=== PATIENT | male | born 1960 | race African-American/Black ===

== ENCOUNTER 2018-06-15 11:28 | Inpatient (IN) | payer OTHER ==
[2018-06-15 14:13] VITALS: BMI 26.9
--- NOTE | 2018-06-15 14:40 | HP ---
CIWA Score Nausea/Vomitin-No Nausea/No Vomiting Muscle Tremors: 4-Moderate,w/Arms Extend Anxiety: 4-Mod. Anxious/Guarded Agitation: 4-Moderately Restless Paroxysmal Sweats: 2 Orientation: 0-Oriented Tacttile Disturbances: 0-None Auditory Disturbances: 0-None Visual Disturbances: 0-None Headache: 1-Very Mild CIWA-Ar Total Score: 15 - Admission Criteria OASAS Guidelines: Admission for Medically Managed Detox: Requires at least one of the followin. CIWA greater than 12 2. Seizures within the past 24 hours 3. Delirium tremens within the past 24 hours 4. Hallucinations within the past 24 hours 5. Acute intervention needed for co occurring medical disorder 6. Acute intervention needed for co occurring psychiatric disorder 7. Severe withdrawal that cannot be handled at a lower level of care (continued vomiting, continued diarrhea, abnormal vital signs) requiring intravenous medication and/or fluids 8. Admission ROS S - HPI Chief Complaint: I drink too much and need help to stop and get treatment. Allergies/Adverse Reactions: Allergies Allergy/AdvReac Type Severity Reaction Status Date / Time No Known Allergies Allergy Verified 06/15/18 13:54 History of Present Illness: pt is a 58yr old male with a history of alcohol and cocaine dependence seeking detox for treatment. longest sobriety for two years [id number]. Exam Limitations: Physical Impairment (walks with cane for ambulating d/t b/ lortho (knee) surgery 2009) - Ebola screening Have you traveled outside of the country in the last 21 days: No Have you had contact with anyone from an Ebola affected area: No Have you been sick,other than usual withdrawal symptoms: No Do you have a fever: No - Review of Systems Constitutional: Chills, Diaphoresis, Loss of Appetite, Changes in sleep EENT: reports: Other (blurred vision need glasses) Respiratory: reports: No Symptoms reported Cardiac: reports: No Symptoms Reported GI: reports: Diarrhea, Nausea, Poor Appetite, Poor Fluid Intake, Indigestion : reports: Urgency Musculoskeletal: reports: Back Pain, Muscle Pain, Joint Stiffness Integumentary: reports: Flushing, Sweating Neuro: reports: Headache, Tingling, Tremors Endocrine: reports: Excessive Sweating, Flushing, Intolerance to Cold, Intolerance to Heat Hematology: reports: No Symptoms Reported Psychiatric: reports: Judgement Intact, Mood/Affect Appropiate, Orientated x3, Agitated, Anxious Other Systems: Reviewed and Negative Patient History - Patient Medical History Hx Anemia: No Hx Asthma: Yes (albuterol) Hx Chronic Obstructive Pulmonary Disease (COPD): No Hx Cancer: No Hx Cardiac Disorders: No Hx Congestive Heart Failure: No Hx Hypertension: No Hx Hypercholesterolemia: No Hx Pacemaker: No HX Cerebrovascular Accident: No Hx Seizures: No Hx Dementia: No Hx Diabetes: No Hx Gastrointestinal Disorders: Yes (stomach ulcer) Hx Liver Disease: No Hx Genitourinary Disorders: No Hx Sexually Transmitted Disorders: No Hx Renal Disease (ESRD): No Hx Thyroid Disease: No Hx Human Immunodeficiency Virus (HIV): No (negative) Hx Hepatitis C: No (negative) Hx Depression: No Hx Suicide Attempt: No (denies) Hx Bipolar Disorder: No Hx Schizophrenia: No - Patient Surgical History Past Surgical History: Yes Hx Neurologic Surgery: No Hx Cataract Extraction: No Hx Cardiac Surgery: No Hx Lung Surgery: No Hx Breast Surgery: No Hx Breast Biopsy: No Hx Abdominal Surgery: No Hx Appendectomy: No Hx Cholecystectomy: No Hx Genitourinary Surgery: No Hx Section: No Hx Orthopedic Surgery: Yes (bilateral knee replacement in 2009) Anesthesia Reaction: No - PPD History Previous Implant?: Yes Documented Results: Negative w/o proof Implanted On Prior R Admission?: No PPD to be Administered?: Yes - Reproductive History Patient is a Female of Child Bearing Age (11 -55 yrs old): No - Smoking Cessation Smoking history: Current every day smoker Have you smoked in the past 12 months: Yes Aproximately how many cigarettes per day: 6 Hx Chewing Tobacco Use: No Initiated information on smoking cessation: Yes 'Breaking Loose' booklet given: 06/15/18 - Substance & Tx. History Hx Alcohol Use: Yes Hx Substance Use: Yes Substance Use Type: Alcohol, Cocaine Hx Substance Use Treatment: Yes (last detox 2009 [facility]. ) - Substances Abused Cocaine Route: Smoking Frequency: 1-2 times per week Amount used: $30 Age of first use: 20 Date of Last Use: 06/14/18 Heroin Route: Inhalation Frequency: 1-3 times last 30 days Amount used: 1 bag Age of first use: 57 Date of Last Use: 06/13/18 Alcohol-beer/vodka Route: Oral Frequency: Daily Amount used: 1-6 pk./2 pts. Age of first use: 19 Date of Last Use: 06/14/18 Family Disease History - Family Disease History Family Disease History: Other: Father (ETOH/), Mother (ETOH/), Sister (ETOH in remission) Admission Physical Exam [facility] - Vital Signs Vital Signs: Vital Signs - 24 hr 06/15/18 13:56 Temperature 96.2 F L Pulse Rate 91 H Respiratory 18 Rate Blood Pressure 117/85 - Physical General Appearance: Yes: Appropriately Dressed, Moderate Distress, Tremorous, Irritable, Sweating, Anxious HEENTM: Yes: Hearing grossly Normal, Normal Voice, Nasal Congestion, Rhinorrhea Respiratory: Yes: Lungs Clear, Normal Breath Sounds, No Respiratory Distress Neck: Yes: No masses,lesions,Nodules Breast: Yes: Within Normal Limits Cardiology: Yes: Regular Rhythm, Regular Rate, S1, S2 Abdominal: Yes: Normal Bowel Sounds, Non Tender Genitourinary: Yes: Within Normal Limits Back: Yes: Normal Inspection Musculoskeletal: Yes: full range of Motion, Back pain Extremities: Yes: Normal Capillary Refill, Non-Tender, Tremors Neurological: Yes: Fully Oriented, Alert, Normal Response Integumentary: Yes: Normal Color, Diaphoresis Lymphatic: Yes: Within Normal Limits - Diagnostic (1) Alcohol dependence with uncomplicated withdrawal Current Visit: Yes Status: Chronic (2) Cocaine dependence Current Visit: Yes Status: Chronic Qualifiers: Substance use status: uncomplicated Qualified Code(s): F14.20 - Cocaine dependence, uncomplicated (3) Chronic knee pain after total replacement of both knee joints Current Visit: Yes Status: Chronic (4) Asthma Current Visit: Yes Status: Chronic Qualifiers: Asthma severity: mild Asthma complication type: uncomplicated (5) H/O gastric ulcer Current Visit: Yes Status: Chronic Cleared for Admission [facility] - Detox or Rehab [facility] Level of Care: Medically Managed Detox Regimen/Protocol: Librium [facility] Breath Alcohol Content Breath Alcohol Content: 0 Urine Drug Screen - Results Drug Screen Negative: No Urine Drug Screen Results: INOCENCIO-Cocaine, OPI-Opiates, OXY-Oxycodone
[2018-06-15] MEDS ORDERED: IBUPROFEN 400 MG TABLET (FP) PO PRN (14:54)
[2018-06-15] MEDS ORDERED: MAGNESIUM CITRATE 300 ML BOTTLE PO PRN (14:54)
[2018-06-15] MEDS ORDERED: P-EPHED 60MG/TRIPROLIDI 2.5MG TABLET PO PRN (14:54)
[2018-06-15] MEDS ORDERED: MAG HYDROX/AL HYDROX/SIMETH 30 ML UNIT-DOSE CUP PO PRN (14:54)
[2018-06-15] MEDS ORDERED: MENTHOL/PHENOL 1 EACH UD MM PRN (14:54)
[2018-06-15] MEDS ORDERED: chlordiazePOXIDE HCL 25 MG CAPSULE PO PRN (14:54)
[2018-06-15] MEDS ORDERED: LOPERAMIDE HCL 2 MG CAPSULE PO PRN (14:54)
[2018-06-15] MEDS ORDERED: ACETAMINOPHEN 325 MG TABLET (FP) PO PRN (14:54)
[2018-06-15] MEDS ORDERED: MAGNESIUM HYDROX 2400MG/30ML ORAL SUSPENSION 30 ML CUP PO PRN (14:54)
[2018-06-15] MEDS ORDERED: guaiFENesin/D-METHORPHAN HB 10 ML UNIT-DOSE CUPS PO PRN (14:54)
[2018-06-15] MEDS ORDERED: hydrOXYzine PAMOATE 50 MG CAPSULE (FP) PO PRN (14:54)
[2018-06-15] MEDS ORDERED: NICOTINE POLACRILEX 4 MG GUM BC PRN (14:54)
[2018-06-15] MEDS ORDERED: ALBUTEROL SO4 8 GM HFA INHALER IH PRN (14:55)
[2018-06-15] MEDS ORDERED: chlordiazePOXIDE HCL 25 MG CAPSULE PO ONE (16:45)
[2018-06-15] MEDS: chlordiazePOXIDE HCL 25 MG CAPSULE PO SCH ×2 (16:54→22:10)
[2018-06-15] MEDS ORDERED: MELATONIN 5 MG TABLETS PO PRN (22:00)
[2018-06-15] MEDS: THIAMINE HCL 100 MG TABLET (FP) PO SCH (22:10)
[2018-06-16] MEDS: chlordiazePOXIDE HCL 25 MG CAPSULE PO SCH ×4 (05:17→22:11)
[2018-06-16 10:14] LABS: HEMATOCRIT 38.3 % (35.4-49); HEMOGLOBIN 12.3 GM/dL (11.7-16.9); MCH 28.9 pg (25.7-33.7); MEAN CELL VOLUME 90.2 fl (80-96); MEAN PLT VOLUME 8.5 fl (7.5-11.1); PLATELET COUNT 193 K/MM3 (134-434); RBC 4.25 M/mm3 (4.00-5.60); RDW 12.5 % (11.9-15.9); WHITE BLOOD COUNT 3.5 K/mm3 (4.0-10.0)
[2018-06-16] MEDS: PRENATAL VITAMINS W/ FOLIC ACID TABLET (FP) PO SCH (10:38)
[2018-06-16] MEDS: NICOTINE 21 MG/24 HOURS TOPICAL PATCH TD SCH (10:38)
[2018-06-16 11:18] LABS: ALBUMIN 3.2 g/dl (3.4-5.0); ALK PHOS 73 U/L (45-117); ANION GAP 7 MMOL/L (8-16); BILIRUBIN,TOTAL 0.4 mg/dL (0.2-1); BLOOD UREA NITROGEN 14 mg/dL (7-18); CALCIUM 7.9 mg/dL (8.5-10.1); CHLORIDE 107 mmol/L (98-107); CO2 26 mmol/L (21-32); CREATININE 0.9 mg/dL (0.55-1.3); GLUCOSE,RANDOM 89 mg/dL (74-106); SGOT/AST 43 U/L (15-37); SGPT/ALT 74 U/L (13-61); SODIUM 140 mmol/L (136-145)
--- NOTE | 2018-06-16 15:58 | PN ---
[facility] CIWA - CIWA Score Nausea/Vomitin-Mild Nausea/No Vomiting Muscle Tremors: 3 Anxiety: 2 Agitation: 3 Paroxysmal Sweats: 1-Minimal Palms Moist Orientation: 1-Uncertain about Date Tacttile Disturbances: 0-None Auditory Disturbances: 1-Very Mild Visual Disturbances: 0-None Headache: 1-Very Mild CIWA-Ar Total Score: 13 S Progress Note (SOAP) Subjective: tremor sweat anxiety trouble sleep at night low energy Objective: 06/16/18 15:55 Vital Signs Temperature 96.6 F L 06/16/18 13:48 Pulse Rate 87 06/16/18 13:48 Respiratory Rate 20 06/16/18 13:48 Blood Pressure 108/74 06/16/18 13:48 O2 Sat by Pulse Oximetry (%) Laboratory Last Values WBC 3.5 K/mm3 (4.0-10.0) L 06/16/18 07:00 RBC 4.25 M/mm3 (4.00-5.60) 06/16/18 07:00 Hgb 12.3 GM/dL (11.7-16.9) 06/16/18 07:00 Hct 38.3 % (35.4-49) 06/16/18 07:00 MCV 90.2 fl (80-96) 06/16/18 07:00 MCH 28.9 pg (25.7-33.7) 06/16/18 07:00 MCHC 32.0 g/dl (32.0-35.9) 06/16/18 07:00 RDW 12.5 % (11.9-15.9) 06/16/18 07:00 Plt Count 193 K/MM3 (134-434) 06/16/18 07:00 MPV 8.5 fl (7.5-11.1) 06/16/18 07:00 Sodium 140 mmol/L (136-145) 06/16/18 07:00 Potassium 4.0 mmol/L (3.5-5.1) 06/16/18 07:00 Chloride 107 mmol/L (98-107) 06/16/18 07:00 Carbon Dioxide 26 mmol/L (21-32) 06/16/18 07:00 Anion Gap 7 MMOL/L (8-16) L 06/16/18 07:00 BUN 14 mg/dL (7-18) 06/16/18 07:00 Creatinine 0.9 mg/dL (0.55-1.3) 06/16/18 07:00 Creat Clearance w eGFR > 60 (>60) 06/16/18 07:00 Random Glucose 89 mg/dL (74-106) 06/16/18 07:00 Calcium 7.9 mg/dL (8.5-10.1) L 06/16/18 07:00 Total Bilirubin 0.4 mg/dL (0.2-1) 06/16/18 07:00 AST 43 U/L (15-37) H 06/16/18 07:00 ALT 74 U/L (13-61) H 06/16/18 07:00 Alkaline Phosphatase 73 U/L (45-117) 06/16/18 07:00 Total Protein 6.0 g/dl (6.4-8.2) L 06/16/18 07:00 Albumin 3.2 g/dl (3.4-5.0) L 06/16/18 07:00 HIV 1&2 Antibody Screen Negative 06/16/18 07:00 HIV P24 Antigen Negative 06/16/18 07:00 lab noted low Ca++ Assessment: 06/16/18 15:57 withdrawal sx hypocalcemia Plan: continue detox oscal supplement bid
[2018-06-16] MEDS: THIAMINE HCL 100 MG TABLET (FP) PO SCH (22:10)
[2018-06-16] MEDS: CALCIUM 250MG/VIT-D 125 UNITS 1 COMBO TABLET PO SCH (22:11)
[2018-06-17] MEDS: chlordiazePOXIDE HCL 25 MG CAPSULE PO SCH ×2 (05:30→10:46)
[2018-06-17] MEDS: PRENATAL VITAMINS W/ FOLIC ACID TABLET (FP) PO SCH (10:45)
[2018-06-17] MEDS: NICOTINE 21 MG/24 HOURS TOPICAL PATCH TD SCH (10:45)
[2018-06-17] MEDS: CALCIUM 250MG/VIT-D 125 UNITS 1 COMBO TABLET PO SCH ×2 (10:45→22:09)
--- NOTE | 2018-06-17 12:08 | PN ---
S CIWA - CIWA Score Nausea/Vomitin Muscle Tremors: 3 Anxiety: 2 Agitation: 2 Paroxysmal Sweats: No Perspiration Orientation: 0-Oriented Tacttile Disturbances: 0-None Auditory Disturbances: 0-None Visual Disturbances: 0-None Headache: 0-None Present CIWA-Ar Total Score: 9 [facility] Progress Note (SOAP) Subjective: PATIENT C/O BODY ACHES, NAUSEA, TIREDNESS, ANXIETY. Objective: 06/17/18 12:06 Vital Signs Temperature 97 F L 06/17/18 09:40 Pulse Rate 82 06/17/18 09:40 Respiratory Rate 18 06/17/18 09:40 Blood Pressure 120/83 06/17/18 09:40 O2 Sat by Pulse Oximetry (%) Laboratory Tests 06/16/18 06/16/18 06/16/18 07:00 07:00 07:00 WBC 3.5 L RBC 4.25 Hgb 12.3 Hct 38.3 MCV 90.2 MCH 28.9 MCHC 32.0 RDW 12.5 Plt Count 193 MPV 8.5 Sodium 140 Potassium 4.0 Chloride 107 Carbon Dioxide 26 Anion Gap 7 L BUN 14 Creatinine 0.9 Creat Clearance w eGFR > 60 Random Glucose 89 Calcium 7.9 L Total Bilirubin 0.4 AST 43 H ALT 74 H Alkaline Phosphatase 73 Total Protein 6.0 L Albumin 3.2 L RPR Titer HIV 1&2 Antibody Screen Negative HIV P24 Antigen Negative 06/16/18 07:00 WBC RBC Hgb Hct MCV MCH MCHC RDW Plt Count MPV Sodium Potassium Chloride Carbon Dioxide Anion Gap BUN Creatinine Creat Clearance w eGFR Random Glucose Calcium Total Bilirubin AST ALT Alkaline Phosphatase Total Protein Albumin RPR Titer Nonreactive HIV 1&2 Antibody Screen HIV P24 Antigen PE: ALERT AND ORIENTED X 3 SKIN WARM AND DRY CAR S1S2 RESP CTA BL EXT FULL ROM, AMB AD TAO, NO EDEMA, +TREMORS ANXIOUS Assessment: 06/17/18 12:07 WITHDRAWAL SX BODY ACHES Plan: CONTINUE DETOX FLEXERIL FOR BODY ACHES ENCOURAGE FLUIDS CONTINUE TO MONITOR
[2018-06-17] MEDS: chlordiazePOXIDE 5 MG CAPSULE PO SCH ×2 (17:02→22:08)
[2018-06-17] MEDS: THIAMINE HCL 100 MG TABLET (FP) PO SCH (22:08)
[2018-06-18] MEDS: CYCLOBENZAPRINE HCL 10 MG TABLET (FP) PO PRN ×2 (05:39→23:04)
[2018-06-18] MEDS: chlordiazePOXIDE 5 MG CAPSULE PO SCH ×2 (05:39→10:14)
[2018-06-18] MEDS: NICOTINE 21 MG/24 HOURS TOPICAL PATCH TD SCH (10:14)
[2018-06-18] MEDS: CALCIUM 250MG/VIT-D 125 UNITS 1 COMBO TABLET PO SCH ×2 (10:14→23:05)
[2018-06-18] MEDS: PRENATAL VITAMINS W/ FOLIC ACID TABLET (FP) PO SCH (10:14)
--- NOTE | 2018-06-18 11:33 | PN ---
[facility] Progress Note (SOAP) Subjective: C/O FATIGUE, DIARRHEA,TOSSED AND TURNED LAST NIGHT. ALERT OX 3. Objective: 06/18/18 13:00 Vital Signs 06/18/18 06/18/18 06:21 09:56 Temperature 97 F L 97.9 F Pulse Rate 70 78 Respiratory 18 20 Rate Blood Pressure 126/74 134/81 Laboratory Tests 06/16/18 06/16/18 06/16/18 07:00 07:00 07:00 WBC 3.5 L RBC 4.25 Hgb 12.3 Hct 38.3 MCV 90.2 MCH 28.9 MCHC 32.0 RDW 12.5 Plt Count 193 MPV 8.5 Sodium 140 Potassium 4.0 Chloride 107 Carbon Dioxide 26 Anion Gap 7 L BUN 14 Creatinine 0.9 Creat Clearance w eGFR > 60 Random Glucose 89 Calcium 7.9 L Total Bilirubin 0.4 AST 43 H ALT 74 H Alkaline Phosphatase 73 Total Protein 6.0 L Albumin 3.2 L RPR Titer HIV 1&2 Antibody Screen Negative HIV P24 Antigen Negative 06/16/18 07:00 WBC RBC Hgb Hct MCV MCH MCHC RDW Plt Count MPV Sodium Potassium Chloride Carbon Dioxide Anion Gap BUN Creatinine Creat Clearance w eGFR Random Glucose Calcium Total Bilirubin AST ALT Alkaline Phosphatase Total Protein Albumin RPR Titer Nonreactive HIV 1&2 Antibody Screen HIV P24 Antigen Assessment: 06/18/18 13:00 WITHDRAWAL SX Plan: CONTINUE DETOX IMODIUM PRN
[2018-06-18] MEDS: chlordiazePOXIDE HCL 10 MG CAPSULE PO SCH ×2 (17:40→23:04)
[2018-06-18 18:02] LABS: URINE APPEARANCE SLCLOUDY; URINE BILIRUBIN NEGATIVE (<2.0 mg/dL); URINE COLOR YELLOW; URINE GLUCOSE (UA) NEGATIVE (NEGATIVE); URINE KETONE NEGATIVE (NEGATIVE); URINE LEUK ESTERASE TRACE (NEGATIVE); URINE NITRITE NEGATIVE (NEGATIVE); URINE PROTEIN NEGATIVE (NEGATIVE); URINE UROBILINOGEN NEGATIVE mg/dL (0.2-1.0)
[2018-06-18 18:15] LABS: EPI CELLS FEW /HPF (FEW)
[2018-06-18] MEDS: THIAMINE HCL 100 MG TABLET (FP) PO SCH (23:04)
[2018-06-19] MEDS: chlordiazePOXIDE HCL 10 MG CAPSULE PO SCH ×2 (06:12→10:19)
[2018-06-19 07:06] VITALS: BP 84/61; PULSE 91; TEMP 98.6
[2018-06-19] MEDS: CALCIUM 250MG/VIT-D 125 UNITS 1 COMBO TABLET PO SCH (10:19)
[2018-06-19] MEDS: PRENATAL VITAMINS W/ FOLIC ACID TABLET (FP) PO SCH (10:19)
[2018-06-19] MEDS: NICOTINE 21 MG/24 HOURS TOPICAL PATCH TD SCH (10:19)
--- NOTE | 2018-06-19 17:08 | DS ---
[facility] Detox Discharge Summary Admission Date: 06/15/18 Discharge Date: 06/19/18 - History Present History: Alcohol Dependence, Cocaine Dependence, Opioid Dependence Additional Comments: Patient completed detox successfully. Patient instructed to follow up with his PCP within 1-2 weeks Pertinent Past History: Opioid dependence Alcohol dependence Cocaine dependence Asthma Nicotine dependence - Physical Exam Results Vital Signs: Vital Signs Temperature 98.6 F 06/19/18 07:06 Pulse Rate 91 H 06/19/18 07:06 Respiratory Rate 16 06/19/18 07:06 Blood Pressure 84/61 L 06/19/18 07:06 O2 Sat by Pulse Oximetry (%) Hypotension noted (84/61, asymptomatic), encouraged PO water hydration Pertinent Admission Physical Exam Findings: Withdrawal symptoms Laboratory Tests 06/16/18 06/16/18 06/16/18 07:00 07:00 07:00 WBC 3.5 L RBC 4.25 Hgb 12.3 Hct 38.3 MCV 90.2 MCH 28.9 MCHC 32.0 RDW 12.5 Plt Count 193 MPV 8.5 Sodium 140 Potassium 4.0 Chloride 107 Carbon Dioxide 26 Anion Gap 7 L BUN 14 Creatinine 0.9 Creat Clearance w eGFR > 60 Random Glucose 89 Calcium 7.9 L Total Bilirubin 0.4 AST 43 H ALT 74 H Alkaline Phosphatase 73 Total Protein 6.0 L Albumin 3.2 L Urine Color Urine Appearance Urine pH Ur Specific [place] Urine Protein Urine Glucose (UA) Urine Ketones Urine Blood Urine Nitrite Urine Bilirubin Urine Urobilinogen Ur Leukocyte Esterase Urine WBC (Auto) Urine RBC (Auto) Ur Epithelial Cells RPR Titer HIV 1&2 Antibody Screen Negative HIV P24 Antigen Negative 06/16/18 06/18/18 07:00 14:47 WBC RBC Hgb Hct MCV MCH MCHC RDW Plt Count MPV Sodium Potassium Chloride Carbon Dioxide Anion Gap BUN Creatinine Creat Clearance w eGFR Random Glucose Calcium Total Bilirubin AST ALT Alkaline Phosphatase Total Protein Albumin Urine Color Yellow Urine Appearance Slcloudy Urine pH 7.0 Ur Specific [place] 1.016 Urine Protein Negative Urine Glucose (UA) Negative Urine Ketones Negative Urine Blood Negative Urine Nitrite Negative Urine Bilirubin Negative Urine Urobilinogen Negative Ur Leukocyte Esterase Trace Urine WBC (Auto) 2 Urine RBC (Auto) <1 Ur Epithelial Cells Few RPR Titer Nonreactive HIV 1&2 Antibody Screen HIV P24 Antigen Labs reviewed - Treatment Hospital Course: Detox Protocol Followed, Detoxed Safely, Responded well, Discharged Condition Good - Medication Discharge Medications: Ambulatory Orders Albuterol Sulfate Inhaler - [Ventolin Hfa Inhaler -] 2 inh PO Q4H PRN 06/15/18 - Diagnosis (1) Opioid dependence, uncomplicated Status: Acute (2) Nicotine dependence Status: Chronic (3) Alcohol dependence with uncomplicated withdrawal Status: Acute (4) Cocaine dependence Status: Acute Qualifiers: Substance use status: uncomplicated Qualified Code(s): F14.20 - Cocaine dependence, uncomplicated (5) Asthma Status: Chronic Qualifiers: Asthma severity: unspecified severity Asthma persistence: unspecified Asthma complication type: uncomplicated Qualified Code(s): J45.909 - Unspecified asthma, uncomplicated (6) Hypotension Status: Acute - AMA Did Patient Leave Against Medical Advice: No (F/U with PCP within 1-2 weeks)
== END 2018-06-19 09:55 | disposition home or self-care (01) | DRG 773 ==
LOC: YASAS 11:28 → Y3N 14:59
PROC: HZ2ZZZZ Detoxification Services for Substance Abuse Treatment (ICD-10-PCS; principal; 2018-06-15)
DX: F11.23 Opioid dependence with withdrawal (principal); F10.230 Alcohol dependence with withdrawal, uncomplicated; F14.20 Cocaine dependence, uncomplicated; F17.210 Nicotine dependence, cigarettes, uncomplicated; I95.9 Hypotension, unspecified; J45.909 Unspecified asthma, uncomplicated; M25.561 Pain in right knee; M25.562 Pain in left knee; G89.29 Other chronic pain; E83.51 Hypocalcemia; R26.89 Other abnormalities of gait and mobility; Z99.89 Dependence on other enabling machines and devices; Z87.19 Personal history of other diseases of the digestive system; Z96.653 Presence of artificial knee joint, bilateral
CPT/HCPCS: 36415; 80053; 81003; 81015; 85027; 86593; 87389